=== PATIENT | female | born 1990 | race Caucasian/White ===

== ENCOUNTER 2024-02-03 11:22 | Emergency (ER) | payer OTHER, SELFPAY ==
[2024-02-03 11:36] VITALS: BP 137/89
--- NOTE | 2024-02-03 13:41 | ED.GENMED ---
History of Present Illness
General
Chief Complaint: Headache
Source: patient
Exam Limitations: none
Time Seen by Provider: 02/03/24 13:32
Travel History
Have you had any contact with someone who has COVID-19?: No
Do you have any symptoms of coronavirus? Fever > 100 degrees, chills, cough, shortness of breath, sore throat, loss of taste or smell, muscle aches, or headache?: No
History of Present Illness
History of Present Illness:
33-year-old female presents with headache for 2 days progressively worsening similar to prior migraines in the past. She has been vomiting. This feels like her migraine she has had in the past. She tried a triptan without relief. No fever. No
vision change. The headache is diffuse more so on the left however. She was here in March of last year for similar symptoms and got relief with IV medications. No other complaints at this time
Past History
Past History
ED Past Medical History: Hyperthyroidism, Other (PCOS) and Other (Migraine headaches )
ED Past Surgical History: Cholecystectomy, Orthopedic (Wrist surgery) and Other (Pyloric stenosis repair as an infant)
Patient has exhibited threatening behavior?: No
PSI?: No
Social History
Tobacco: Non-smoker
Alcohol: Occasional
Drug: None
Personal: Single
Living: with family
Employment: Employed
Phy Exam
Physical Exam
Physical Exam:
General: Well-appearing female no acute respiratory
HEENT: Normocephalic pupils equal round reactive to light
Neurologic: Alert and oriented normal gait conversing of the pupils equal round reactive
Heart: Regular rate and rhythm no murmurs
Lungs: Clear to auscultation bilaterally no wheezing
Course
Orders/Labs/Results
Orders:
Orders
02/03/24 13:40
0.9% Sodium Chloride 1000 ml [Nss] 1,000 ml IV BOLUS
Diphenhydramine [Benadryl] 25 mg IV NOW STA
Ketorolac [Toradol] 15 mg IV NOW STA
Prochlorperazine [Compazine] 10 mg IV NOW STA
Vital Signs
Initial and Last Documented VS:
Initial Vital Signs
Temp Pulse Resp BP Pulse Ox
98.9 F 111 17 137/89 99
02/03/24 11:36 02/03/24 11:36 02/03/24 11:36 02/03/24 11:36 02/03/24 11:36
Last Documented Vital Signs
Temp Pulse Resp BP Pulse Ox
98.9 F 111 17 137/89 99
02/03/24 11:36 02/03/24 11:36 02/03/24 11:36 02/03/24 11:36 02/03/24 11:36
MDM/Problems Addressed
Differential Diagnosis Includes:
Headache. Not sudden in onset. This sounds and feels similar to prior migraines. Do not suspect intracranial hemorrhage. Has fairly normal exam. Will try fluids Compazine Benadryl Toradol.
*Critical Care Note
Total Time (30-74mins, 75-104mins- exclusive of procedures): Not Applicable
Update Note
Update Note:
Patient feeling much better after treatment here. Suspect migraine. No concern for intracranial hemorrhage. Stable for discharge
ED Attending Note
-
Portions of this chart may have been created with voice recognition software.� Occasional wrong word or��sound alike� substitutions may have occurred due to the inherent limitations of voice recognition software.
Discharge Plan
Departure
Patient Disposition: Home (Routine Discharge)
Date of Disposition: 02/03/24
Time of Disposition: 14:53
Patient with high blood pressure during this ER visit?: No
Discharge Problem:
Migraine
Instructions: Migraines (DC)
Prescriptions:
No Action
paroxetine HCl 10 MG tablet
10 mg PO DAILY
Control
1 tab PO DAILY
Maxalt
25 mg PO Q1H PRN (Reason: headache)
ondansetron 4 MG tablet,disintegrating
4 mg PO TIDPRN PRN (Reason: nausea/vomiting) Qty: 6 0RF
ondansetron 4 mg tablet,disintegrating
4 mg PO TIDPRN PRN (Reason: nausea/vomiting) Qty: 10 0RF
Referrals:
Gifty Dueñas MD [Family Provider] -
Activity Restrictions/Additional Instructions:
Rest. Drink plenty fluids. Return if worse otherwise follow-up with family doctor
Interventions
Interventions:
ED- Neurological Assessment Last Done: 02/03/24 11:52
Discharge Date and Time
Print Language: CROATIAN
[2024-02-03] MEDS: NSS 1000 IV (13:46)
[2024-02-03] MEDS: COMPAZINE 10 MG IV (13:46)
[2024-02-03] MEDS: TORADOL 15 MG IV (13:46)
[2024-02-03] MEDS: BENADRYL 25 MG IV (13:47)
[2024-02-03 14:57] VITALS: BP 150/72
== END 2024-02-03 15:03 | disposition home or self-care (01) ==
LOC: EMR 11:22
PROVIDERS: EMERGENCY PHYSICIAN Emergency Medicine; FAMILY PHYSICIAN Internal Medicine
DX: G43.909 Migraine, unspecified, not intractable, without status migrainosus (principal)
CPT/HCPCS: 99284; 96374; 96375 ×2; 96361

== ENCOUNTER 2025-09-02 08:05 | Emergency (ER) | payer OTHER, SELFPAY ==
[2025-09-02 08:11] VITALS: BP 167/110
[2025-09-02 08:21] VITALS: BMI 42.2
[2025-09-02 08:29] VITALS: BP 133/92
[2025-09-02] MEDS: BENADRYL 25 MG IV (08:39)
[2025-09-02] MEDS: TORADOL 15 MG IV (08:40)
[2025-09-02] MEDS: NSS 1000 IV (08:41)
[2025-09-02] MEDS: REGLAN 10 MG IV (08:41)
--- NOTE | 2025-09-02 08:55 | ED.GENMED ---
History of Present Illness
General
Chief Complaint: Headache
Source: patient
Exam Limitations: none
Time Seen by Provider: 09/02/25 08:16
Nursing documentation reviewed up to this point in time: agreed with
History of Present Illness
History of Present Illness:
Patient is a 35-year-old female with past medical history of polycystic ovarian syndrome, migraines presents to the ER for evaluation. She woke up around 4:30 AM with her typical migraine. She reports she did take her rizatriptan without relief.
She is supposed to take it several times however has been very nauseous and not been able to take an additional. She reports she was here in January. She has not seen a neurologist in years. Her migraines are managed by her family doctor. She
denies any recent trauma. Denies any illness fever or chills. She is presently nauseous and light sensitive.
Past History
Past History
ED Past Medical History: Hyperthyroidism, Other (PCOS) and Other (Migraine headaches )
ED Past Surgical History: Cholecystectomy, Orthopedic (Wrist surgery) and Other (Pyloric stenosis repair as an )
Patient has exhibited threatening behavior?: No
PSI?: No
Social History
Tobacco: Non-smoker
Alcohol: Occasional
Drug: None
Personal: Single
Living: with family
Employment: Employed
Phy Exam
General Physical Exam
General Presentation: well appearing
General age: appears stated age
General Skin: warm and dry
General Habitus: normal
General Mental: alert
General Hydration: appears well hydrated
Neurological Exam
Neurological Exam: alert, oriented x3, no motor deficits and no sensory deficits
Course
Orders/Labs/Results
Orders:
Orders
09/02/25 08:29
IV Insert/Care/Rem.- Treatment PRN
0.9% Sodium Chloride 1000 ml [Nss] 1,000 ml IV BOLUS
09/02/25 08:30
Diphenhydramine [Benadryl] 25 mg IV NOW STA
Ketorolac [Toradol] 15 mg IV NOW STA
Metoclopramide [Reglan] 10 mg IV NOW STA
Vital Signs
Initial and Last Documented VS:
Initial Vital Signs
Temp Pulse Resp BP Pulse Ox
98.5 F 107 16 167/110 98
09/02/25 08:11 09/02/25 08:11 09/02/25 08:11 09/02/25 08:11 09/02/25 08:11
Last Documented Vital Signs
Temp Pulse Resp BP Pulse Ox
98.5 F 93 16 134/76 99
09/02/25 08:11 09/02/25 09:45 09/02/25 08:11 09/02/25 09:00 09/02/25 09:45
MDM/Problems Addressed
Differential Diagnosis Includes:
Not limited to migraine, headache
MDM/Problems Addressed:
Patient is a 35-year-old female who presents to the ER for evaluation of her typical migraine. She was very nauseous and not able to take her migraine medicine as instructed she was only able to get 1 dose then. She presents awake alert no acute
distress has mild photophobia headache and nausea. Patient was given Reglan Benadryl fluids feeling much better feels well enough to go home. Will also DC with Zofran and outpatient follow-up with neurology as needed.
*Pulse Oximetry
SaO2: 98
Oxygen Mode of Delivery: Room air
Patient hypoxic: no
*Critical Care Note
Total Time (30-74mins, 75-104mins- exclusive of procedures): Not Applicable
Data Reviewed
Review of Other/Old Records Reveals: Other (Previous ED visit)
ED Attending Note
-
Portions of this chart may have been created with voice recognition software.� Occasional wrong word or��sound alike� substitutions may have occurred due to the inherent limitations of voice recognition software.
Discharge Plan
Departure
Patient Disposition: Home (Routine Discharge)
Date of Disposition: 09/02/25
Time of Disposition: 09:57
Patient with high blood pressure during this ER visit?: Yes
Condition: Fair
Covid-19: Not Applicable
Discharge Problem:
Migraine
Instructions: Migraines (DC), BLOOD PRESSURE
Prescriptions:
New
ondansetron 4 mg tablet,disintegrating
4 mg PO Q8H PRN (Reason: nausea and vomiting) Qty: 10 0RF
No Action
paroxetine HCl 10 MG tablet
10 mg PO DAILY
Control
1 tab PO DAILY
Maxalt
25 mg PO Q1H PRN (Reason: headache)
Referrals:
Gifty Dueñas MD [Family Provider, Internal Medicine]
Activity Restrictions/Additional Instructions:
As discussed you may take Zofran as needed this was sent to your pharmacy. You may continue to take your migraine medicine as previously prescribed. Follow-up with your family doctor in the next several days as well as neurology. Please call to
make an appointment. Return if any worsening of symptoms.
Interventions
Interventions:
*Risk Screen - Suicide Last Done: 09/02/25 08:11
*General Assessment Last Done: 09/02/25 08:11
*Neglect/Abuse Screening Last Done: 09/02/25 08:52
*ED- Fall Risk Assessment Last Done: 09/02/25 08:53
*ED COVID-19 Vaccine History Last Done: 09/02/25 08:11
*ED Influenza Vaccine History Last Done: 09/02/25 08:11
ED- Neurological Assessment Last Done: 09/02/25 08:49
Discharge Date and Time
Print Language: NEPALI
[2025-09-02 09:00] VITALS: BP 134/76
== END 2025-09-02 10:25 | disposition home or self-care (01) ==
LOC: EMR 08:05
PROVIDERS: EMERGENCY PHYSICIAN Emergency Medicine; FAMILY PHYSICIAN Internal Medicine
DX: G43.909 Migraine, unspecified, not intractable, without status migrainosus (principal); R03.0 Elevated blood-pressure reading, without diagnosis of hypertension; E28.2 Polycystic ovarian syndrome
CPT/HCPCS: 99284; 96374; 96375 ×2; 96361